=== PATIENT | male | born 1970 | race Asian ===

== ENCOUNTER → 2016-04-02 | Outpatient (REF) ==
[~2016-04-02] MED LIST: CARDI-OMEGA1000 MG PO; GLUCOSAMINE CHO1 CA1 PO; KLONOPIN 0.5MG0.5 MG PO; LAMICTAL 100MG100 MG PO; RISPERDAL 0.5M0.5 MG PO
== END ==
LOC: WSOH 08:34
DX: Z01.83 Encounter for blood typing (principal)

== ENCOUNTER → 2016-04-07 | Outpatient (REF) | LOC: WSOH 15:05 | DX: Z01.83 Encounter for blood typing (principal) ==

== ENCOUNTER → 2016-04-21 | Outpatient (REF) | LOC: WSOH 09:00 | DX: Z01.83 Encounter for blood typing (principal) ==

== ENCOUNTER → 2016-08-27 | Outpatient (CLI) | payer BC | LOC: BHSO 13:59 | DX: F31.74 Bipolar disorder, in full remission, most recent episode manic (principal) ==